=== PATIENT | female | born 1940 | race Caucasian/White ===

== ENCOUNTER 2016-06-18 07:09 | Day surgery (SDC) | payer MEDICARE, OTHER ==
[~2016-06-18] VITALS: Ht 157.5 cm; Wt 66.0 kg
[2016-06-18] VITALS (8 sets, daily range): BP systolic 130–157; BP diastolic 60–76; PULSE 8–109; RESP 11–18; O2SAT 95–99
--- NOTE | 2016-06-18 06:46 | PCM.HPANE ---
Patient Data Surgeon Admitting Provider: Attending Provider:Eddie Valadez MD Primary Care Physician:Bj Reyna DO Other Provider: Reason for Visit Right Breast Cancer Ht/WT & BMI Height (Feet): 5 Height (Inches): 2 Weight (Kilograms): 66.6 Body Mass Index 27.00 Allergies Coded Allergies: shrimp (Verified Allergy, Severe, hives, 06/13/16) iodine (Verified Allergy, Unknown, UNKNOWN, 06/13/16) Past Anesthesia History Anesthesia History: Positive for:: Anesthesia Reactions (Sinus Tachy after spinal for tka's 2006), Denies:: Abnormal Airway, Difficult Intubation, Fam Malignant Hypertherm, Malignant Hyperthermia Diabetes History Hx Diabetes?: No MRSA MRSA: No Medications Reported Medications Levothyroxine 50 Mcg [id number] Mcg PO DAILY Ref 0 05/31/16 Naproxen Sodium (Aleve)220 Mg [id number] Mg PO BID PRN PRN 05/31/16 History History of ENT Problems?: No HEENT History: Denies:: Abnormal Airway Difficult Intubation Dysphagia Hearing Problem Sinus Problem TMJ Hx of Heart Problems?: Yes Cardiovascular History: Denies:: Heart Murmur Hypertension Irregular Heartbeat (hx of sinus tachy after knee surgery in 2006) Valvular Heart Disease Hx of Respiratory Problem?: No Respiratory History: Denies:: Use of C-PAP Machine Hx Neurologic Problems?: No Hx of GI Problems?: No Hx of Problems?: No Female Hx: Positive for:: Problems with Breasts? (S/P RT BREAST BX,RT SKIN- SPARING MASTECT. RT BREAST CA=CURRENT PROBLEM) Denies:: Currently Skin History: Denies:: History Skin Disorders? Pressure Ulcers Hx Musculoskeletal Problems?: Yes Musculoskeletal History: Positive for:: Back Injury (s/p rhizotomy spine) Degenerative Joint Joint Replacement (S/P bilat tka's) Musculoskeletal Trauma (S/P BILAT ANKLE RECONSTRUCTION,RT SHOULDER RPR,BILAT KNEE SCOPES ) Osteoarthritis (OSTEOPOROSIS) Hx of Psycho/Social Problems?: No Hx Surgeries?: Yes (VAGHYST/BSO,RT SHOULDER RPR,RT MASTECTOMY/BR BX,RHIZOTOMY, BILAT TKA'S,BILAT) Hx Any Other Health Problems?: Yes Other History: Positive for:: Endocrine Disease Thyroid Disease (hx of thyroid nodules(BENIGN)) Denies:: Cancer Hospitalization History Blood Transfusions: Denies:: Blood Transfusions Hx Diabetes: No Hx Alcohol Use: YesAlcoholic Drinks Per Day: 3-4/WEEKHx Substance Use: No Smoking Status: Never Smoker Have You Smoked inLast 12 mo: No Stop/Bang S-Snoring: Do You Snore Loudly: No T-Tired: feel tired, fatigued: No O-Obsered: Observed not breath: No P-Blood Pressure: treated: No B- Body Mass Index > 35 kg/m2: No A- Age over 50: Yes N- Neck Large Circumference: No G- Gender Male: No SHAWANDA Total Score: 1 SHAAWNDA Risk Assessment: Low Risk, <3 Yes Risk Assessment Category Category 1A: Patient has history of documented sleep apnea, and HAS NOT received any narcotic, sedative or anesthesia administration during this stay. Category 1B: Patient has history of documented sleep apnea, and HAS received any narcotic , sedative or anesthesia administration during this stay Category 2: Patient has SUSPECTED Obstructive Sleep Apnea, and HAS received any narcotic , sedative or anesthesia administration during this stay. Category 3: Patient has SUSPECTED Obstructive Sleep Apnea and HAS NOT received narcotic, sedative or anesthesia administration during this stay. Category 4: Outpatient in Procedural Areas with known sleep apnea or who screen positive for High Risk via the STOP/BANG questionnaire. Exam Exam General Appearance: Alert, Oriented X3, Cooperative, No Acute Distress HEENT/AIRWAY: MP 2 Lungs: Clear to Auscultation, Normal Air Movement Heart: Exam Unremarkable, Regular Rate/Rhythm, No Murmurs/Rubs/Gallops Plan Impression Patient chart reviewed, patient interviewed and anesthestic plan with risks, benefits, and alternatives discussed, and informed consent obtained. NPO Status: 06/03 at 1800 ASA Physical Status: ASA1 Normal Healthy Anesthetic Plan: GA Bene/Risks/Altern/Consents: Yes HP Complete Prior to Induction: Yes Ted Momin MD Jun 18, 2016 06:46
[~2016-06-18 07:09] MED LIST: LEVO50TA6 PO; Lactated Ringer's 1,000 ML IV ONE; NAPR220C11 PO
[2016-06-18] MEDS ORDERED: CeFAZolin 2 Gm/50 mL D5W IV Premix IV ONE (07:10)
[2016-06-18] MEDS ORDERED: Propofol 10,000 mCg/mL 20 mL Inj ONE (07:10)
[2016-06-18] MEDS ORDERED: Ondansetron 2 mg/mL 2 mL Inj ONE (07:10)
[2016-06-18] MEDS ORDERED: fentaNYL-PF 50 mCg/mL 2 mL Inj ONE (07:10)
[2016-06-18] MEDS ORDERED: Dexamethasone 4 mg/mL Inj ONE (07:10)
[2016-06-18] MEDS ORDERED: Bupivacaine-MPF 0.5% W/EPI 30 mL Inj INFILTRATE ONE (09:40)
[2016-06-18] MEDS ORDERED: Lactated Ringer's 1,000 ML IV SCH (09:42)
[2016-06-18] MEDS ORDERED: Lactated Ringer's 500 ML IV PRN (09:42)
[2016-06-18] MEDS ORDERED: HYDROmorphone 1 mg/mL Inj IVPUSH PRN (09:45)
[2016-06-18] MEDS ORDERED: Atropine 0.4 mg/mL Inj IVPUSH PRN (09:45)
[2016-06-18] MEDS ORDERED: MetoCLOpramide 5 mg/mL 2 mL Inj IVPUSH PRN (09:45)
[2016-06-18] MEDS ORDERED: fentaNYL-PF 50 mCg/mL 2 mL Inj IVPUSH PRN (09:45)
[2016-06-18] MEDS ORDERED: Ondansetron 2 mg/mL 2 mL Inj IVPUSH PRN (09:45)
[2016-06-18] MEDS ORDERED: Phenylephrine 10,000 mCg/mL Inj IVPUSH PRN (09:45)
[2016-06-18] MEDS ORDERED: Labetalol 5 mg/mL 4 mL Inj IV PRN (09:45)
[2016-06-18] MEDS ORDERED: EPHEDrine Sulfate 50 mg/mL Inj IVPUSH PRN (09:45)
[2016-06-18] MEDS ORDERED: Dexamethasone 4 mg/mL Inj IVPUSH PRN (09:45)
[2016-06-18] MEDS ORDERED: hydrALAZINE 20 mg/mL Inj IVPUSH PRN (09:45)
[2016-06-18] MEDS ORDERED: HYDROcodone-APAP 5-325 mg Tablet PO PRN (10:05)
[2016-06-18] MEDS ORDERED: Ketorolac 15 mg/mL Inj IVPUSH PRN (10:05)
--- NOTE | 2016-06-18 10:10 | PCM.SURGOP ---
Surgical Operative Report Date of Service: Jun 18, 2016 Pre Operative Diagnosis Right breast invasive lobular carcinoma Post Operative Diagnosis Same Procedure: Reexcision of right mastectomy Surgeon and Lock Master: Surgeon: Eddie Valadez MD Assistants: Sarah Perales PA-C Indication for Procedure 75-year-old woman who underwent a right skin sparing mastectomy with axillary sentinel node biopsy 2 weeks ago for invasive lobular carcinoma of the upper outer quadrant. Her final pathology demonstrated a 6.5 cm tumor focally extending to the posterior margin. All other margins were negative. Her sentinel nodes were negative. After discussion of risks and benefits, she agreed to proceed with reexcision of the right posterior margin, corresponding to the pectoralis muscle. Findings: The muscle looked grossly normal. There was no other evidence of residual disease. Prior to muscle contraction, the area of resected pectoralis muscle measured 5.0 x 5.0 x 0.6 cm. Procedure Details After smooth induction of general anesthesia with an LMA, she was placed in the supine position. There was some residual Dermabond on the skin and a slight amount of maceration. The right breast was prepped and draped in wide sterile fashion. A procedural pause was performed according to the SCOAP checklist, and all were found to be in agreement. Because of the slight maceration of the skin, the prior skin incision was excised through a small skin ellipse. That skin was oriented with suture, and sent for permanent pathology, labeled as right breast skin. There was a small seroma laterally which was evacuated. The skin flap was elevated off the underlying pectoralis muscle, as there were some adhesions. The muscle was grossly normal. There was no gross evidence of residual disease. A 5 x 5 cm area of pectoralis muscle was marked out with electrocautery corresponding to the upper outer quadrant, extending to the lateral edge of the pectoralis muscle. Pectoralis muscle was resected with electrocautery, with a thickness of approximately 0.6 cm. That tissue was oriented with suture, and sent for permanent pathology. There was no gross evidence of residual disease. Hemostasis was achieved. A drain was not necessary. The skin incision was closed with interrupted deep dermal 3-0 Vicryl sutures, and a running 4-0 Vicryl subcuticular stitch. Dermabond was applied as a new dressing. At the end of the case all needle and sponge counts were correct 2. The patient was awakened from anesthesia without difficulty, and taken to the recovery room in satisfactory condition, having tolerated the procedure well. Complications There were no periprocedural complications identified. Surgical Specimen Removed: Yes Specimen sent to Pathology: Yes Surgical Specimen description: Right breast skin. Right pectoralis muscle. Anesthetic Plan: GA Grafts, Implants: None Output, Estimated Blood Loss: 10 Blood Administration during mcgregor: No Drains: None Catheters: None copies to: Dillon Hickey MD; Bj Reyna DO; Estevan Copeland MD, Joshua D MD Jun 18, 2016 10:10
--- NOTE | 2016-06-18 11:59 | PCM.ANEP1 ---
Post Anesthesia Phase 1 PACU Phase 1 Assessment Date of Service: Jun 18, 2016 Vital Signs Vital Signs Date Time Temp Pulse Resp B/P Pulse Ox O2 Delivery O2 Flow Rate FiO2 06/18/16 10:54 91 14 150/76 97 Room Air 06/18/16 10:35 36.5 93 15 157/75 96 Room Air 06/18/16 10:30 96 13 140/75 96 Room Air 06/18/16 10:25 36.3 86 11 147/60 97 Room Air 06/18/16 10:20 101 16 138/68 95 Room Air 06/18/16 10:15 103 16 148/67 99 Simple Mask 8 06/18/16 10:13 36.7 109 17 145/70 99 Simple Mask 8 06/18/16 07:23 36.5 92 18 130/71 95 Room Air Anesthetic Administered: GA Level of Alertness: Awake, talking SOUTH's with Equal Strength: Yes Pain: No Nausea or Vomiting: No Oxygen Delivery: Simple Mask Lungs: Clear to Auscultation, Normal Air Movement Ted Momin MD Jun 18, 2016 11:59
--- NOTE | 2016-06-18 12:58 | PCM.ANEP2 ---
Post Anesthesia Evaluation ASA/CMS Post Anesthesia VS in Patient's Normal Range?: Yes Resp Stable; Airway Patent?: Yes CV Function & Hydration Stable: Yes Mental Status Recovered?: Yes Pain control Satisfactory?: Yes N/V Control Satisfactory?: Yes Ted Momin MD Jun 18, 2016 12:58
--- NOTE | 2016-06-24 10:30 | PATH ---
SURGICAL PATHOLOGY Attending Physician:Armando Macias CASE STATUS: Signed Out PATIENT NAME: YEFRI VIVAR PID: [id number] : 1940 DATE COLLECTED:06/18/2016 15:11 SPECIMEN: 1: Breast Mass, Excision 2: Muscle, Resection CLINICAL HISTORY: A: RIGHT BREAST SKIN-SHORT STITCH SUPERIOR, LONG STITCH LATERAL B: RIGHT PECTORALIS MUSCLES FINAL DIAGNOSIS: 1.RIGHT BREAST SKIN, EXCISION: CHRONIC ACTIVE INFLAMMATION, NECROSIS, AND FIBROSIS, CONSISTENT WITH PREVIOUS SURGERY. NO EVIDENCE OF MALIGNANCY. NEGATIVE FOR EPITHELIAL PROLIFERATION. 2.RIGHT PECTORALIS MUSCLE RESECTION: SKELETAL MUSCLE WITH CHRONIC ACTIVE INFLAMMATION AND FIBROSIS, CONSISTENT WITH PREVIOUS SURGERY. NO EVIDENCE OF INVASIVE NEOPLASM OR DUCTAL CARCINOMA IN SITU. ICD10 CODE C50.9 GROSS DESCRIPTION: The specimens are received in formalin, labeled with the patient's name, and sublabeled as the following: (1) Rt. breast skin; (2) right pectoralis muscle. (1) the specimen consists of an ellipse of skin with subcutaneous tissue (1.4 cm AP, 1.6 cm SI, 9.0 cm ML) oriented with 2 black sutures (short-superior, long-lateral). The skin is lino-monahan and partially stained blue with a dark brown linear sliced ridge (length-4.5 cm). The ridge is 0.5 cm from the superior, less than 0.1 cm in inferior, 1.0 cm from the medial, and 4.0 cm from the lateral resection margins. The subcutaneous tissue is fibrofatty. No nodules, masses or lesions are identified. Ink code: yellow-posterior; black-superior; orange-inferior; green-medial; blue-lateral. Section code: (1A-1E) ellipse of skin, serially sectioned and submitted ML. Specimen entirely submitted. (2) the specimen consists of a piece of muscle (0.9 cm AP, 2.5 cm SI, 4.0 cm ML) oriented with 2 black sutures (short-superior, long-lateral). The muscle is red-brown and unremarkable. No nodules, masses or lesions are identified. Ink code: purple-anterior; yellow-posterior; black-superior; orange-inferior; green-medial; blue-lateral. Section code: (2A-2D) piece of muscle, serially sectioned and submitted ML. Specimen entirely submitted. 06/21/16 ROGERIO MICRO DESCRIPTION: See diagnosis. ICD-9 CODES: CPT CODES: 1: 93720 2: 05787 Electronically Signed Out Torres Tong MD [facility] [address], [place] [address] Technical component performed at [facility], [facility] [address], [place], [address]
[2016-06-26] MEDS ORDERED: ACET325T51 PO (15:53)
== END 2016-06-18 23:59 | disposition home or self-care (01) ==
LOC: SAS 07:09
PROVIDERS: ATTEND Student in an Organized Health Care Education/Training Program
DX: C50.411 Malignant neoplasm of upper-outer quadrant of right female breast (principal); M81.0 Age-related osteoporosis without current pathological fracture; E04.1 Nontoxic single thyroid nodule
CPT/HCPCS: 19301; J0690; J1100; J1885; J2250; J2405; J7120

== ENCOUNTER 2016-12-30 08:22 | Emergency (ER) | payer OTHER, MEDICARE ==
[~2016-12-30] VITALS: Ht 154.9 cm; Wt 65.9 kg
[~2016-12-30 08:22] MED LIST changes: +ACET325T51 PO; -Lactated Ringer's 1,000 ML IV ONE
[2016-12-30 08:26] VITALS: BP 145/75; PULSE 100; RESP 16; O2SAT 98
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
[2016-12-30] MEDS ORDERED: HYDR-3090 PO (10:02)
[2016-12-30 10:03] VITALS: BP 114/82; PULSE 92; RESP 16; O2SAT 98
[2016-12-30 10:07] VITALS: BP 114/82; PULSE 92; RESP 16; O2SAT 98
== END 2016-12-30 10:07 | disposition home or self-care (01) ==
LOC: SED 08:22
DX: S20.211A Contusion of right front wall of thorax, initial encounter (principal); R91.1 Solitary pulmonary nodule; V49.59XA Passenger injured in collision with other motor vehicles in traffic accident, initial encounter; Y93.89 Activity, other specified; Y92.410 Unspecified street and highway as the place of occurrence of the external cause; Y99.8 Other external cause status; E03.9 Hypothyroidism, unspecified; Z85.3 Personal history of malignant neoplasm of breast; Z91.013 Allergy to seafood